=== PATIENT | male | born 1930 | race Two or more races ===

== ENCOUNTER → 2018-02-17 | Emergency (ER) | payer OTHER ==
[~2018-02-17] VITALS: Ht 172.7 cm; Wt 68.0 kg
[~2018-02-17] MED LIST: ANTIVERT25 MG; AVALIDE 300/12.1 TAB; GLUCOPHAGE XR500 MG; GLUCOTROL10 MG; NORMODYNE200 MG
== END | disposition home or self-care (01) ==
LOC: ER 11:01
DX: I16.0 Hypertensive urgency (principal); I10 Essential (primary) hypertension

== ENCOUNTER → 2018-03-03 | Emergency (ER) | payer OTHER ==
[~2018-03-03] VITALS: Ht 172.7 cm; Wt 68.0 kg
== END | disposition home or self-care (01) ==
LOC: ER 11:52
DX: K59.09 Other constipation (principal); K56.41 Fecal impaction

== ENCOUNTER 2018-05-07 12:06 | Outpatient (CLI) | payer OTHER | END 2018-05-07 14:50 | disposition home or self-care (01) | LOC: RAD 12:06 | DX: M25.362 Other instability, left knee (principal); M25.562 Pain in left knee ==

== ENCOUNTER 2018-05-14 10:05 | Outpatient (CLI) | payer OTHER | END 2018-05-14 17:00 | disposition home or self-care (01) | LOC: EDBD 10:05 → TOM 10:05 | DX: S06.5X9A Traumatic subdural hemorrhage with loss of consciousness of unspecified duration, initial encounter (principal) ==

== ENCOUNTER 2018-05-14 11:13 | Inpatient (IN) | payer OTHER ==
[~2018-05-14] VITALS: Ht 160 cm; Wt 65.3 kg
[2018-05-17] MEDS ORDERED: Lantus 1000 UNITS/10 SUBCUTANEO (11:52)
[2018-05-17] MEDS ORDERED: HumaLOG 100 UNIT/1 M SUBCUTANEO (11:52)
[2018-05-17] MEDS ORDERED: LANCETS (11:54)
[2018-05-17] MEDS ORDERED: INSULIN SYRING1 EA27 SUBCUTANEO (11:54)
[2018-05-17] MEDS ORDERED: GLUCOMETERSTRIP (11:57)
[2018-05-17] MEDS ORDERED: GLUCOMETERDEVICE (11:57)
[2018-05-17] MEDS ORDERED: TAMSULOSIN HCL0.4 MG PO (12:04)
[2018-05-17] MEDS ORDERED: AMLODIPINE BESYL5 MG PO (12:04)
[2018-05-17] MEDS ORDERED: FINASTERIDE5 MG PO (12:04)
== END 2018-05-17 16:51 | disposition home or self-care (01) | DRG 683 ==
LOC: ER 11:13 → SEC-K 20:58 → MEDJ 20:58
PROVIDERS: ADMIT Internal Medicine
PROC: BT43ZZZ Ultrasonography of Bilateral Kidneys (ICD-10-PCS; principal; 2018-05-14)
DX: N17.8 Other acute kidney failure (principal); N13.8 Other obstructive and reflux uropathy; N18.9 Chronic kidney disease, unspecified; E11.65 Type 2 diabetes mellitus with hyperglycemia; R79.89 Other specified abnormal findings of blood chemistry; I12.9 Hypertensive chronic kidney disease with stage 1 through stage 4 chronic kidney disease, or unspecified chronic kidney disease; N40.0 Benign prostatic hyperplasia without lower urinary tract symptoms

== ENCOUNTER 2018-07-31 07:15 | Inpatient (IN) | payer OTHER ==
[~2018-07-31] VITALS: Ht 165.1 cm; Wt 63.5 kg
[~2018-07-31 07:15] MED LIST changes: +AMLODIPINE BESYL5 MG PO; +FINASTERIDE5 MG PO; +GLUCOMETERDEVICE; +GLUCOMETERSTRIP; +HumaLOG 100 UNIT/1 M SUBCUTANEO; +INSULIN SYRING1 EA27 SUBCUTANEO; +LANCETS; +Lantus 1000 UNITS/10 SUBCUTANEO; +TAMSULOSIN HCL0.4 MG PO
[2018-08-05] MEDS ORDERED: HYDRALAZINE HCL50 MG PO (09:24)
[2018-08-05] MEDS ORDERED: ELIQUIS2.5 MG PO (09:24)
[2018-08-05] MEDS ORDERED: ISOSORBIDE MONO30 MG PO (09:24)
[2018-08-05] MEDS ORDERED: SIMVASTATIN20 MG PO (09:24)
== END 2018-08-05 10:58 | disposition home or self-care (01) | DRG 282 ==
LOC: ER 07:15 → SEC-K 08-01 10:39 → MEDJ 08-01 10:39
PROVIDERS: ADMIT Internal Medicine
PROC: 4A12X4Z Monitoring of Cardiac Electrical Activity, External Approach (ICD-10-PCS; principal; 2018-08-01)
PROC: B246ZZZ Ultrasonography of Right and Left Heart (ICD-10-PCS; 2018-08-01)
PROC: 4A12XM4 Monitoring of Cardiac Stress, External Approach (ICD-10-PCS; 2018-08-01)
PROC: 3E073KZ Introduction of Other Diagnostic Substance into Coronary Artery, Percutaneous Approach (ICD-10-PCS; 2018-08-01)
DX: I21.4 Non-ST elevation (NSTEMI) myocardial infarction (principal); I48.0 Paroxysmal atrial fibrillation; E11.65 Type 2 diabetes mellitus with hyperglycemia; I24.8 Other forms of acute ischemic heart disease; I13.10 Hypertensive heart and chronic kidney disease without heart failure, with stage 1 through stage 4 chronic kidney disease, or unspecified chronic kidney disease; N18.9 Chronic kidney disease, unspecified

== ENCOUNTER 2018-08-08 20:41 | Emergency (ER) | payer OTHER ==
[~2018-08-08] VITALS: Ht 172.7 cm; Wt 63.5 kg
[~2018-08-08 20:41] MED LIST changes: +ELIQUIS2.5 MG PO; +HYDRALAZINE HCL50 MG PO; +ISOSORBIDE MONO30 MG PO; +SIMVASTATIN20 MG PO
[2018-08-08] MEDS ORDERED: PEPCID AC20 MG PO (22:48)
[2018-08-08] MEDS ORDERED: ZITHROMAX500 MG PO (22:48)
== END 2018-08-09 00:09 | disposition home or self-care (01) ==
LOC: ER 20:41
DX: J35.01 Chronic tonsillitis (principal)

== ENCOUNTER 2018-09-30 10:14 | Emergency (ER) | payer OTHER ==
[~2018-09-30] VITALS: Ht 172.7 cm; Wt 68.0 kg
[~2018-09-30 10:14] MED LIST changes: +PEPCID AC20 MG PO; +ZITHROMAX500 MG PO
== END 2018-09-30 17:00 | disposition home or self-care (01) ==
LOC: ER 10:14
DX: J18.0 Bronchopneumonia, unspecified organism (principal); N28.9 Disorder of kidney and ureter, unspecified

== ENCOUNTER 2018-11-07 06:46 | Inpatient (IN) | payer OTHER ==
[~2018-11-07] VITALS: Ht 172.7 cm; Wt 63.5 kg
[2018-11-13] MEDS ORDERED: LASIX40 MG PO (14:56)
[2018-11-13] MEDS ORDERED: SIMVASTATIN20 MG PO (14:56)
[2018-11-13] MEDS ORDERED: HYDRALAZINE HCL50 MG PO (14:56)
[2018-11-13] MEDS ORDERED: ELIQUIS2.5 MG PO (14:56)
[2018-11-13] MEDS ORDERED: NIFEDIPINE ER30 MG PO (14:56)
[2018-11-13] MEDS ORDERED: ISOSORBIDE MONO30 MG PO (14:56)
[2018-11-13] MEDS ORDERED: LACTULOSE20 GM/30 M PO (14:56)
[2018-11-13] MEDS ORDERED: HUMULIN 70100 UNIT/2 SUBCUTANEO (14:56)
== END 2018-11-13 17:28 | disposition home or self-care (01) | DRG 281 ==
LOC: ER 06:46 → SURH 16:22 → SEC-K 16:22 → MEDI 17:43 → SURG 17:53 → SURH 18:22
PROVIDERS: ADMIT Internal Medicine
PROC: B246ZZZ Ultrasonography of Right and Left Heart (ICD-10-PCS; principal; 2018-11-07)
PROC: 4A12X4Z Monitoring of Cardiac Electrical Activity, External Approach (ICD-10-PCS; 2018-11-07)
PROC: BB24ZZZ Computerized Tomography (CT Scan) of Bilateral Lungs (ICD-10-PCS; 2018-11-08)
DX: I13.0 Hypertensive heart and chronic kidney disease with heart failure and stage 1 through stage 4 chronic kidney disease, or unspecified chronic kidney disease (principal); I21.4 Non-ST elevation (NSTEMI) myocardial infarction; I50.20 Unspecified systolic (congestive) heart failure; I24.8 Other forms of acute ischemic heart disease; N17.8 Other acute kidney failure; N18.9 Chronic kidney disease, unspecified; I48.2 Chronic atrial fibrillation; E03.8 Other specified hypothyroidism; E11.65 Type 2 diabetes mellitus with hyperglycemia

== ENCOUNTER 2019-02-10 10:16 | Emergency (ER) | payer OTHER ==
[~2019-02-10] VITALS: Ht 172.7 cm; Wt 72.6 kg
[~2019-02-10 10:16] MED LIST changes: +HUMULIN 70100 UNIT/2 SUBCUTANEO; +LACTULOSE20 GM/30 M PO; +LASIX40 MG PO; +NIFEDIPINE ER30 MG PO
== END 2019-02-10 14:54 | disposition home or self-care (01) ==
LOC: ER 10:16
DX: M25.552 Pain in left hip (principal); M54.5 Low back pain